=== PATIENT | male | born 1980 ===

== ENCOUNTER → 2020-03-01 | Day surgery (SDC) | payer OTHER ==
[~2020-03-01] MED LIST: AMOX1TAB5 PO; COLACE100 MG PO; IBU600 MG PO; LEVAQUIN500 MG PO; PERCOCET 5-3251 EACH PO
== END | disposition home or self-care (01) ==
LOC: ADM 02-27 09:15 → CIR.AMB 08:50 → ADM 09:15 → CIR.AMB 09:15
PROVIDERS: ATTEND Surgery
DX: K60.3 Anal fistula (principal)

== ENCOUNTER 2020-04-19 05:58 | Day surgery (SDC) | payer OTHER ==
[2020-04-19] MEDS ORDERED: COLACE100 MG PO (12:05)
[2020-04-19] MEDS ORDERED: PERCOCET 5-3251 EACH PO (12:05)
== END 2020-04-19 17:35 | disposition home or self-care (01) ==
LOC: CIR.AMB 05:58
PROVIDERS: ATTEND Surgery
DX: K60.3 Anal fistula (principal); Z20.828 Contact with and (suspected) exposure to other viral communicable diseases